=== PATIENT | male | born 1995 | race Caucasian/White ===

== ENCOUNTER 2019-05-25 20:41 | Emergency (ER) | payer SELFPAY ==
--- NOTE | ~2019-05-25 | XR_ITS ---
EXAMINATION: XR chest 2V DATE: 05/25/2019 21:13 INDICATION: Left-sided chest pain TECHNIQUE: PA and lateral views of the chest were obtained. COMPARISON: None FINDINGS: The lungs are clear with no focal airspace opacities, pulmonary edema, pleural effusion or pneumothor ax. The cardiomediastinal silhouette is normal. Visualized bones and soft tissues are unremarkable. IMPRESSION: 1. Normal chest radiograph. Reviewed, dictated and finalized at location A. IFIED PEST CONTROL TECHNICIAN IMPRESSION: 1. Normal chest radiograph.
[2019-05-25 20:45] VITALS: BP 158/97; PULSE 110; RESP 20; TEMP 36.8; O2SAT 98
--- NOTE | 2019-05-25 20:49 | ECG_ITS ---
Measurements Intervals [place] Rate: 111 P: 59 FL: 120 QRS: 4 QRSD: 102 T: 65 QT: 328 QTc: 448 Interpretive Statements SINUS TACHYCARDIA MINIMAL Q WAVES- LATERAL LEADS ABNORMAL ECG Electronically Signed On 05-26-2019 7:22:39 PROJECT MANAGER INTERIOR DESIGN by Jimi Robin D.O.
--- NOTE | 2019-05-25 20:54 | ED.CHESTPAIN ---
HPI - Chest Pain General Chief Complaint: Chest Pain Stated Complaint: CP, has been seen 3times Time Seen by Provider: 05/25/19 20:52 Source: patient Mode of arrival: ambulatory Limitations: no limitations History of Present Illness HPI narrative: A 24 y/o male pt presents to the ED, with c/o lt sided CP that began today. Pt notes having a bad tooth infection that he was prescribed Abx for and has felt weird since . He describes his pain as a flutter in his chest and notes having intermittent epigastric and LUQ ABD pain that radiates into his lt chest. Pt states he feels fatigued, has constipation, and notes having pain in the back of his rt calf and LUE, but denies any N/V/D, fever or SOB. He notes that he was seen at [facility] and was told he has anxiety and was prescribed and anxiety medication that he did not take, and Amoxicillin for his tooth. Pt denies any mouth pain in the ED. MD complaint: chest pain Onset (ago): hour(s) Timing of current episode: still present Pain location: left chest Quality: other (flutter) Context: new medications (Amoxicillin for infection in tooth) Associated symptoms: other (Epigastric, LUQ ABD pain, LUE pain, pain in posterior rt calf, fatigue) Related Data Home Medications Medication Instructions Recorded Confirmed No Home Medications 05/25/19 05/25/19 Allergies Allergy/AdvReac Type Severity Reaction Status Date / Time No Known Allergies Allergy Verified 05/25/19 20:47 Review of Systems Review of Systems: All systems reviewed & are unremarkable except as noted in HPI and below Constitutional: Constitutional: Reports fatigue and Denies fever(s) ENT: Denies mouth pain Cardiovascular: Cardiovascular: Reports chest pain (lt sided, flutter) Respiratory: Respiratory: Denies dyspnea Gastrointestinal: Gastrointestinal: Reports abdominal pain (epigastric, LUQ, radiates to chest), Reports constipation, Denies diarrhea, Denies nausea and Denies vomiting Musculoskeletal: Musculoskeletal: Reports other (pain in posterior rt calf, LUE) [facility] Past Medical History Medical History (Updated 05/25/19 @ 22:22 by HAN Ferrell) Medical history unknown Surgical History Surgical History (Updated 05/25/19 @ 22:22 by HAN Ferrell) Surgical history unknown Social History Social History (Updated 05/25/19 @ 22:22 by Mushtaq Osorio, [place]) Smoking status: Unknown if ever smoked Exam Const: General: healthy appearing, no acute distress and alert Nutritional Appearance: well nourished Orientation/consciousness: patient oriented x3 HENMT: Head: normal to inspection Neck: Neck: normal visual inspection Chest: Chest palpation & inspection: normal inspection of the chest and no tenderness Resp: Effort & Inspection: normal respiratory effort Auscultation: clear to auscultation bilaterally Cardio: Rate: regular rate Rhythm: regular rhythm GI: Other: Soft, NT, ND Skin: General skin exam: normal color Wounds: no wounds Neuro: General: patient oriented x3 and moves all extremities Speech: normal speech Extrem: General: normal to inspection Course Vital Signs Vital signs: Vital Signs Temperature 36.8 C 05/25/19 20:45 Pulse Rate 110 H 05/25/19 20:45 Respiratory Rate 20 05/25/19 20:45 Blood Pressure 158/97 H 05/25/19 20:45 Pulse Oximetry 98 05/25/19 20:45 Temperature 36.7 C 05/25/19 21:33 Pulse Rate 97 05/25/19 22:19 Respiratory Rate 20 05/25/19 22:19 Blood Pressure 126/80 05/25/19 22:19 Pulse Oximetry 98 05/25/19 22:19 MDM - Chest Pain Differential Diagnosis Differential diagnosis: Likely atypical chest pain, costochondritis, chest pain and other (anxiety, PE, influenza) Medical Records Data Attestation: I reviewed the patient's medical records. Lab Data Attestation: I reviewed the patient's lab results. Result diagrams: 05/25/19 21:06 05/25/19 21:06 Labs: Lab Results
[2019-05-25 21:11] LABS: Basophils Absolute Auto 0.1 K/mm3 (0.0-0.1); Basophils Percent Auto 0.7 % (0.2-1.2); Eosinophils Absolute Auto 0.1 K/mm3 (0-0.3); Eosinophils Percent Auto 0.6 % (0-4.4); Hematocrit 45.2 % (42.0-52.0); Hemoglobin 15.5 g/dL (14.0-18.0); Immature Granulocyte Absolute 0.03 K/mm3 (0.00-0.031); Immature Granulocyte Percent A 0.3 % (0-0.5); Lymphocytes Absolute Auto 1.82 K/mm3 (0.9-3.2); Lymphocytes Percent Auto 19.4 % (18.3-44.2); Mean Corpuscular HGB Conc 34.3 g/dl (32-36); Mean Corpuscular Hemoglobin 30.7 pg (26-34); Mean Corpuscular Volume 89.5 fl (80-100); Monocytes Absolute Auto 0.6 K/mm3 (0.1-0.6); Monocytes Percent Auto 6.8 % (2.6-8.5); Neutrophils Absolute Auto 6.8 K/mm3 (1.3-6.7); Neutrophils Percent Auto 72.2 % (45.5-73.1); Platelet Count Result 303 k/mm3 (150-375); Red Blood Count 5.05 M/mm3 (4.6-6.20); Red Cell Distribution Width 11.8 % (11.5-14.5); White Blood Count 9.4 K/mm3 (4.5-10.0)
[2019-05-25 21:21] LABS: Partial Thromboplastin Time 27.7 SECONDS (22.3-36.8); Prothrombin Time 13.3 Seconds (11.1-14.7)
[2019-05-25 21:24] LABS: Blood Urea Nitrogen 12 mg/dL (9-20); Calcium 9.2 mg/dL (8.4-10.2); Carbon Dioxide 28 mmol/L (22-30); Chloride 98 mmol/L (98-107); Estimated Glomerular Filt Rate > 60; Glucose 102 mg/dL (75-110); Potassium 3.6 mmol/L (3.4-5.0); Sodium 142 mmol/L (137-145)
[2019-05-25 21:33] VITALS: BP 117/88; PULSE 92; RESP 21; TEMP 36.7; O2SAT 100
[2019-05-25] MEDS: SODIUM CHLORIDE 0.9% IV 1,000 ML 999 ML IV CONT (21:33)
[2019-05-25 21:36] LABS: Troponin I < 0.012 ng/mL (0.000-0.034)
[2019-05-25 21:44] LABS: D Dimer 0.18 ug/mL (<0.48)
[2019-05-25 22:19] VITALS: BP 126/80; PULSE 97; RESP 20; O2SAT 98
--- NOTE | 2019-06-10 04:32 | PC.NURSE ---
LATE ENTRY This note is being entered to document information to the patient's record. The following information was omitted on 05/25/2019 2219, by CORDELIA WINTER. NORMAL SALINE INFUSION COMPLETE AT 2215. 1 L INFUSED.
== END 2019-05-25 22:21 | disposition home or self-care (01) ==
PROVIDERS: Emergency Medicine; Emergency Provider Emergency Medicine
DX: R07.89 Other chest pain (principal); R00.0 Tachycardia, unspecified
CPT/HCPCS: 36415; 71046; 80048; 84484; 85025; 85380; 85610; 85730; 87804; 93005; 96360; 99284; J7030

== ENCOUNTER 2019-06-30 00:48 | Emergency (ER) | payer SELFPAY ==
--- NOTE | ~2019-06-30 | XR_ITS ---
XR chest 2V DATE: 06/30/2019 01:26 INDICATION: Left lateral chest pain TECHNIQUE: PA and lateral views COMPARISON: 05/25/2019 PA and lateral chest FINDINGS: Normal heart size. No hilar or mediastinal enlargement. No pulmonary infiltrate or consolid ation, pleural effusion or pulmonary vascular congestion or pneumothorax. IMPRESSION: No active cardiopulmonary disease Reviewed, dictated and finalized at location A.
[2019-06-30 00:52] VITALS: BP 147/85; PULSE 88; RESP 20; TEMP 36.2; O2SAT 100
[2019-06-30 00:55] VITALS: PULSE 80
--- NOTE | 2019-06-30 00:56 | ECG_ITS ---
Measurements Intervals [place] Rate: 95 P: 55 [place]: 130 QRS: 6 QRSD: 104 T: 36 QT: 339 QTc: 428 Interpretive Statements SINUS RHYTHM WITH SINUS ARRHYTHMIA POSSIBLE LEFT ATRIAL ENLARGEMENT MINIMAL Q WAVES- LATERAL LEADS BORDERLINE ECG Electronically Signed On 06-30-2019 16:26:54 CDT by Jimi Robin D.O.
--- NOTE | 2019-06-30 00:57 | ED.CHESTPAIN ---
HPI - Chest Pain General Chief Complaint: Chest Pain Stated Complaint: CHEST PAIN Time Seen by Provider: 06/30/19 00:49 Source: patient and RN notes reviewed Mode of arrival: other Limitations: no limitations History of Present Illness HPI narrative: Pt is a 24 y/o male who presents to the ED with c/o mild intermittent left sided chest pain that began a couple of weeks ago. Pt states that his chest pain began after he took some medication for an abscess on his tooth. He states that he went to [facility] ED and denies having any testing performed. He states that he was just dx with anxiety and given medications. He states that the medication makes him tired so he does not take the medication. He states that he came to [place] for further evaluation. Pt was seen by Dr. Day and had a full evaluation with a chest x-ray and blood work with negative results. 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 He states that he thought he was going to have a heart attack. Pt also reports a cough and bilateral pectoralis pain, but denies palpitations, nausea, vomiting, nasal discharge, leg swelling, back pain, and any recent traveling. 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 complaint: chest pain Onset (ago): week(s) Timing of current episode: other (intermittent) Prior episodes: Yes Onset: during rest Pain location: left chest Pain radiation: none Severity: mild Relieving factors: nothing Associated symptoms: cough and other (bilateral pectoralis pain) Treatment prior to arrival: none Related Data Home Medications Medication Instructions Recorded Confirmed No Home Medications 05/25/19 06/30/19 Allergies Allergy/AdvReac Type Severity Reaction Status Date / Time No Known Allergies Allergy Verified 06/30/19 00:56 Review of Systems Review of Systems: Narrative: ENT: Denies nasal discharge. CARDIOVASCULAR: Reports left sided chest pain. Denies leg edema. RESPIRATORY: Reports cough. GASTROINTESTINAL: Denies nausea and vomiting. MUSCULOSKELETAL: Reports bilateral pectoralis pain. Denies back pain. All systems reviewed & are unremarkable except as noted in HPI and below PMFSH Past Medical History Medical History (Updated 06/30/19 @ 03:58 by Annette Garzon MD) Anxiety Surgical History Surgical History (Updated 05/25/19 @ 22:22 by Mushtaq Osorio [facility]) Surgical history unknown Family History Family History (Updated 06/30/19 @ 01:07 by Sofia Perkins) Grandparent Diabetes mellitus Social History Social History (Updated 06/30/19 @ 01:03 by Sofia Perkins) Smoking status: Current every day smoker Tobacco type: cigarettes Alcohol intake: never Substance use: never Substance use type: does not use Gender identity (if verbalized by the patient): Male Exam Narrative: Exam Narrative: CONSTITUTIONAL: Awake, alert, conversant HEAD: Normocephalic, atraumatic. EYES: EOMI, conjunctiva clear ENT: Nares patent. Mucous membranes moist. NECK: Full range of motion CHEST: Bilateral pectoral chest wall tenderness which reproduces the pain, no crepitus RESPIRATORY: No respiratory distress, speaking in full sentences, no tachypnea HEART: Regular rate ABDOMEN: Non distended, non tender EXTREMITIES: Normal range of motion. No edema. No calf tenderness. SKIN: Warm, dry, no rash. NEUROLOGIC: No focal deficits. Alert and oriented x3. Course Course Emergency Course: Patient presented for evaluation of very atypical chest pain story. Patient is well-appearing with stable vital signs at the time of assessment. Patient is anxious appearing. I reviewed his previous visit to our ER, an EKG. Today's EKG is unchanged. Patient's EKG and labs are without significant high risk changes. Cardiac risk factors reviewed. Patient is felt low risk for ACS and reasonable for further risk stratification testing as an outpatient. Pain was not sudden or maximal or
[2019-06-30] MEDS: ASPIRIN 81 MG CHEWABLE TABLET 324 MG PO (01:18)
[2019-06-30 01:25] LABS: Basophils Absolute Auto 0.1 K/mm3 (0.0-0.1); Basophils Percent Auto 0.6 % (0.2-1.2); Eosinophils Absolute Auto 0.2 K/mm3 (0-0.3); Eosinophils Percent Auto 1.7 % (0-4.4); Hematocrit 49.8 % (42.0-52.0); Immature Granulocyte Absolute 0.03 K/mm3 (0.00-0.031); Immature Granulocyte Percent A 0.2 % (0-0.5); Lymphocytes Percent Auto 25.3 % (18.3-44.2); Mean Corpuscular HGB Conc 34.1 g/dl (32-36); Mean Corpuscular Hemoglobin 30.8 pg (26-34); Mean Corpuscular Volume 90.2 fl (80-100); Mean Platelet Volume 9.9 fl (7.4-10.4); Monocytes Percent Auto 7.7 % (2.6-8.5); Neutrophils Absolute Auto 8.2 K/mm3 (1.3-6.7); Neutrophils Percent Auto 64.5 % (45.5-73.1); Platelet Count Result 337 k/mm3 (150-375); Red Blood Count 5.52 M/mm3 (4.6-6.20); Red Cell Distribution Width 11.7 % (11.5-14.5); White Blood Count 12.7 K/mm3 (4.5-10.0)
[2019-06-30 01:33] LABS: Prothrombin Time 12.7 Seconds (11.1-14.7)
[2019-06-30 01:34] LABS: Blood Urea Nitrogen 16 mg/dL (9-20); Calcium 9.9 mg/dL (8.4-10.2); Carbon Dioxide 30 mmol/L (22-30); Chloride 100 mmol/L (98-107); Estimated Glomerular Filt Rate > 60; Glucose 98 mg/dL (75-110); Partial Thromboplastin Time 28.3 SECONDS (22.3-36.8); Potassium 3.4 mmol/L (3.4-5.0); Sodium 142 mmol/L (137-145)
[2019-06-30 01:37] LABS: D Dimer 0.27 ug/mL (<0.48)
[2019-06-30 01:46] LABS: Troponin I < 0.012 ng/mL (0.000-0.034)
[2019-06-30 02:00] VITALS: BP 120/79; PULSE 62; RESP 18; O2SAT 100
[2019-06-30] MEDS: SODIUM CHLORIDE 0.9% IV 1,000 ML 999 ML IV CONT (02:00)
[2019-06-30 03:45] LABS: Estimated Glomerular Filt Rate > 60
[2019-06-30 03:54] LABS: Troponin I < 0.012 ng/mL (0.000-0.034)
[2019-06-30 04:15] VITALS: BP 129/88; PULSE 78; RESP 18; O2SAT 98
--- NOTE | 2019-07-08 06:56 | PC.NURSE ---
LATE ENTRY This note is being entered to document information to the patient's record. The following information was omitted on [06/30/19], by [Katraina Franco]. 1L IV fluids infused at 0230.
== END 2019-06-30 04:16 | disposition home or self-care (01) ==
PROVIDERS: Emergency Provider Emergency Medicine
DX: R07.89 Other chest pain (principal); F17.210 Nicotine dependence, cigarettes, uncomplicated; R94.31 Abnormal electrocardiogram [ECG] [EKG]
CPT/HCPCS: 36415; 71046; 80048; 82565; 84484; 85025; 85380; 85610; 85730; 93005; 99284; A9270; J7030